=== PATIENT | male | born 1995 | race Two or more races ===

== ENCOUNTER 2019-11-11 10:47 | Emergency (ER) | payer OTHER ==
[~2019-11-11] VITALS: Ht 182.9 cm; Wt 97.5 kg
== END 2019-11-11 14:54 | disposition home or self-care (01) ==
LOC: ER 10:47
DX: J03.80 Acute tonsillitis due to other specified organisms (principal); J02.9 Acute pharyngitis, unspecified

== ENCOUNTER 2021-02-23 11:29 | Outpatient (CLI) | payer OTHER | END 2021-02-23 12:33 | disposition home or self-care (01) | LOC: OFIC 805 11:29 | PROVIDERS: ATTEND Otolaryngology Otology & Neurotology | DX: H93.8X1 Other specified disorders of right ear (principal); H61.21 Impacted cerumen, right ear ==

== ENCOUNTER → 2021-07-11 | Emergency (ER) | payer OTHER ==
[~2021-07-11] VITALS: Ht 180.3 cm; Wt 97.5 kg
== END | disposition home or self-care (01) ==
LOC: ER 13:33
DX: A54.00 Gonococcal infection of lower genitourinary tract, unspecified (principal); A64 Unspecified sexually transmitted disease; R30.0 Dysuria